=== PATIENT | female | born 1985 | race Hispanic/Latino ===

== ENCOUNTER 2017-12-02 01:38 | Emergency (ER) | payer OTHER ==
[2017-12-02] MEDS ORDERED: Albuterol-Ipratrop 3 mg / 0.5 (3 ml) UD INH STA (02:11)
--- NOTE | 2017-12-02 02:38 | C.PDOC ---
History Of Present Illness 32 year old female with PMHx of asthma, allergies presents to the ED c/o SOB. Patient reports that earlier today she had asthma exacerbation, she states using her albuterol inhaler with minimal relief. Patient denies fever, chills, nausea, vomit, dizziness, headache, rash, recent travel, sick contacts. Time Seen by Provider: 12/02/17 01:46 Chief Complaint (Nursing): Shortness Of Breath History Per: Patient History/Exam Limitations: no limitations Onset/Duration Of Symptoms: Hrs Current Symptoms Are (Timing): Still Present Initiating Event: Upper Respiratory Illness Quality: Tightness Current Respiratory Medications: See Home Med List Recent travel outside of the [place]: No Additional History Per: Patient Past Medical History Reviewed: Historical Data, Nursing Documentation, Vital Signs Vital Signs: Last Vital Signs Temp 97.9 F 12/02/17 01:45 Pulse 104 H 12/02/17 01:45 Resp 18 12/02/17 02:00 BP 103/68 12/02/17 01:45 Pulse Ox 99 12/02/17 02:00 - Medical History PMH: Asthma, Depression (on zoloft) Surgical History: No Surg Hx Family History: States: Unknown Family Hx - Social History Hx Alcohol Use: No Hx Substance Use: No - Immunization History Hx Tetanus Toxoid Vaccination: No Hx Influenza Vaccination: No Hx Pneumococcal Vaccination: No Review Of Systems Constitutional: Negative for: Fever, Chills ENT: Negative for: Throat Pain Cardiovascular: Negative for: Chest Pain Respiratory: Positive for: Shortness of Breath. Negative for: Cough Gastrointestinal: Negative for: Nausea, Vomiting Skin: Negative for: Rash Neurological: Negative for: Headache, Dizziness Physical Exam - Physical Exam Appears: Non-toxic, No Acute Distress Skin: Normal Color, Warm, Dry Head: Atraumatic, Normacephalic Eye(s): bilateral: Normal Inspection Oral Mucosa: Moist Throat: Normal, No Erythema, No Exudate Neck: Normal ROM, Supple Chest: Symmetrical Cardiovascular: Rhythm Regular Respiratory: Decreased Breath Sounds (all lung desai), No Rales, No Rhonchi, Wheezing (diffuse expiratory) Gastrointestinal/Abdominal: Soft, No Tenderness, No Guarding, No Rebound Extremity: Normal ROM, No Tenderness, No Swelling Neurological/Psych: Oriented x3, Normal Speech Gait: Steady ED Course And Treatment O2 Sat by Pulse Oximetry: 99 (ON RA) Pulse Ox Interpretation: Normal Progress Note: Plan: - Duoneb X2. - Prednisone 60 mg PO. On reassessment, patient is resting comfortably with no wheezing, chest pain, or retractions. Oxygen saturation and breath sounds have improved. Patient is alert and oriented x 3. Patient was advised to follow up with physician/clinic in 1-2 days and return to ED if symptoms worsen or persist. Disposition Counseled Patient/Family Regarding: Diagnosis, Need For Followup, Rx Given - Disposition Referrals: [facility] [Outside] Disposition Time: 02:36 Condition: STABLE Additional Instructions: Please follow up with PMD Continue albuterol inhaler return to ER if worse Prescriptions: Albuterol HFA [Ventolin HFA 90 mcg/actuation (8 g)] 2 puff IH [id number] #1 inhaler predniSONE [Prednisone] 40 mg PO DAILY #10 tab Instructions: Asthma, Adult (DC) Forms: Accompanied To ED By:, Patient Conversation Media (Jordanian) - Clinical Impression Clinical Impression: Asthma exacerbation, mild - 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 - Scribe Statement The provider has reviewed the documentation as recorded by the Scribe Yousuf Cruz All medical record entries made by the Scribe were at my direction and personally dictated by me. I have reviewed the chart and agree that the record accurately reflects my personal performance of the history, physical exam, medical decision making, and the department course for this patient. I have also personally directed, reviewed, and agree with the discharge instructions and disposition.
[2017-12-02 10:45] VITALS: BP 100/70; PULSE 100; RESP 20; TEMP 98; O2SAT 98
== END 2017-12-02 03:14 | disposition home or self-care (01) ==
LOC: C.ER 01:38
DX: J45.901 Unspecified asthma with (acute) exacerbation (principal)